=== PATIENT | male | born 1990 | race Caucasian/White ===

== ENCOUNTER 2019-09-10 09:03 | Outpatient (CLI) | payer BC, SELFPAY ==
--- NOTE | 2019-09-10 09:13 | ECHO_ITS ---
Patient Info Name: Eliseo Francis Age: 29 years : 1990 Gender: Male Ht: 75 in Wt: 190 lbs BSA: 2.14 m2 HR: 87 bpm BP: 125 / 82 mmHg Exam Date: 09/10/2019 9:55 AM Exam Location: [facility] Patient Status: Outpatient Admit Date: 09/10/2019 Staff Ordering Physician: Carmen Hopson Investment Officer: Sonny Pascal, BARBARA, RT Attending Provider: Carmen Hopson Referring Physician: Mark Anthony FORD; Exam Type: CA echo doppler color flow Study Info Indications I49.9 - Cardiac arrhythmia, unspecified Complete two-dimensional, color flow and Doppler transthoracic echocardiogram is performed. Summary 1. Left ventricular chamber dimension is normal. 2. Left ventricular systolic function is normal, estimated at 60-65%. 3. There is mildly increased left ventricular wall thickness. 4. The left ventricular diastolic function is grade I diastolic dysfunction. 5. E/e' 7 is not elevated. 6. Global longitudinal strain is abnormal at -12.2%. 7. There is trace pulmonic regurgitation. Left Ventricle E/e' 7 is not elevated. Global longitudinal strain is abnormal at -12.2%. Left ventricular chamber dimension is normal. Left ventricular systolic function is normal, estimated at 60-65%. There is mildly increased left ventricular wall thickness. The left ventricular diastolic function is grade I diastolic dysfunction. Right Ventricle Right ventricular chamber dimension is normal. Right ventricular systolic function is normal. Left Atria Left atrial chamber dimension is normal. Right Atria Right atrial chamber dimension is normal. Aortic Valve The aortic valve is trileaflet. There is no aortic valve stenosis. There is no aortic valve regurgitation. Pulmonic Valve There is trace pulmonic regurgitation. Mitral Valve There is no mitral valve stenosis. There is no mitral valve regurgitation. Tricuspid Valve There is no tricuspid valve regurgitation. Pericardium/Pleural There is no pericardial effusion. Inferior Vena Cava Normal inferior vena cava with >50% collapse upon inspiration consistent with normal right atrial pressure, 5 mmHg. Aorta The aortic root size at the sinus of Valsalva is normal. Left Ventricular Outflow Tract Name Value Normal LVOT 2D LVOT Diameter 2.2 cm LVOT Doppler LVOT Peak Gradient 3 mmHg LVOT Mean Gradient 2 mmHg LVOT VTI 18 cm LVOT VTI/AV VTI Ratio 1.0 LVOT Stroke Volume 70 ml LVOT CO 5.7 l/min LVOT CI 2.7 l/min/m2 Mitral Valve Name Value Normal MV Doppler MV Decel Clarke 476 cm/s2 MV PHT 40 ms MV Area (PHT)
--- NOTE | 2019-09-12 12:29 | WPDHOLTEREM ---
Holter/Event Monitor Holter/Event Monitor Date of procedure: 09/10/19 Procedure Type: 24 hour holter monitor Indications: Cardiac arrhythmia Conclusion: 1. 24 hour holter monitor on 09/10/19. 2. Underlying rhythm is sinus rhythm. HR range 38-143 bpm; average HR 80 bpm. 3. No premature supraventricular complexes. No supraventricular tachycardia. 4. There are 4 premature ventricular complexes. No ventricular tachycardia. 5. No sinoatrial or atrioventricular blocks. No significant pauses greater than 2 seconds. 6. No symptoms available for correlation.
== END 2019-09-10 09:04 | disposition home or self-care (01) ==
PROVIDERS: PCP Family Medicine; Visit Provider Nurse Practitioner Family
DX: I49.8 Other specified cardiac arrhythmias (principal)
CPT/HCPCS: 93225; 93226; 93306

== ENCOUNTER 2022-12-23 06:46 | Outpatient (CLI) | payer OTHER, SELFPAY ==
--- NOTE | 2023-01-10 19:42 | WPDSLEEPSTUD ---
Sleep Study Date of Study: 12/23/22 Ordering Provider: Abelardo Cabrera MD Interpreting Physician: Kaci Vigil DO Sleep Study Type: BiPAP Titration Height: 1.88 m Weight: 99.337 kg Body Mass Index: 28.0 Neck Circumference (inches): 16 [place]: 3 Reason for Sleep Study The patient had a SNAP study on 08/03/2022 that showed an AHI (4% criteria) of 42.3. The patient had a central/mixed index of 23.9. Diagnosed with severe central sleep apnea. Sleep History The patient is a 32-year-old male with ADHD, depression and anxiety that had a PAP titration study ordered by his primary care physician after having an abnormal home sleep test. 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 He denies awakening from sleep short of breath. He denies awakening at night with heartburn, belching or cough. He frequently snores but it is never loud enough that others complain. He occasionally has trouble sleeping when he has a cold. He frequently wakes up gasping for air throughout the night. He frequently has breathing problems at night observed by himself or others. He occasionally sweats excessively at night. He denies having heart palpitations or irregular heartbeats during the night. He denies falling asleep during the day and while driving. He denies sleep paralysis, cataplexy and hypnagogic / hypnopompic hallucinations. He rarely has trouble at school or work due to sleepiness. He denies feeling afraid of going to sleep. He rarely has nightmares. He occasionally remembers his dreams. He frequently has thoughts racing through his mind. He occasionally feels sad, depressed and anxious. He denies having muscular tension. He rarely notices parts of his body jerk. He constantly kicks during the night. He rarely experiences crawling and aching feelings in but denies having leg pain during the night. He constantly grinds his teeth during sleep but never awakens with morning jaw pain. He denies being bothered by pain during the day and denies being awakened by pain during the night. He rarely wakes up feeling stiff in the morning. He denies waking up with sore or achy muscles. He denies waking up with pain in the neck, spine or other joints. He goes to bed at 9:00 p.m. on weekdays and at 9:30 p.m. on the weekends. He is able to fall asleep relatively quickly and wakes up lot throughout the night. He is usually able to fall back asleep within a few minutes. He wakes up at 6:30 a.m. on weekdays and 8:30 a.m. on the weekends. He typically gets 5 hours of sleep per night. He will stay in bed for 20 minutes after waking up in the morning. He currently lives with his girlfriend. He works a rotating shift. He denies consuming any caffeinated beverages within 2 hours of bedtime. He denies engaging in physical exercise before bedtime. He will watch television before falling asleep. He denies taking naps in afternoon or the evening. He consumes 2 caffeinated beverages per day. He denies tobacco, and recreational drug use. [facility] Past Medical History Medical History BMI 26.0-26.9,adult BMI 27.0-27.9,adult BMI 28.0-28.9,adult Family History Family History Father Hypertension Mother No problems noted. Social History Social History Smoking status: Never smoker Second hand tobacco smoke exposure: No Alcohol intake: current Drinks per week: 0 Alcohol use details: rare Substance use: never Substance use type: does not use Lack of Transportation: No Lack of Food: Never True Current Housing: I Have Housing Concerned About Future Housing: No Difficulty Paying Gas/Electric Bills: No Difficulty Paying for Meds: No Currently Unemployed: No Education: High School Diploma/GED Difficulty w/ Childcare or Family Care: No Living arrangements: wi
[2023-01-10 20:03] VITALS: BMI 28.0
== END 2022-12-24 07:20 | disposition home or self-care (01) ==
LOC: ANHCSM 06:47
PROVIDERS: PCP Family Medicine; Visit Provider Family Medicine
DX: G47.31 Primary central sleep apnea (principal); G47.00 Insomnia, unspecified; F90.9 Attention-deficit hyperactivity disorder, unspecified type
CPT/HCPCS: 95811